=== PATIENT | female | born 1940 | race Caucasian/White ===

== ENCOUNTER 2020-11-25 08:06 | Inpatient (IN) ==
[2020-11-25] MEDS ORDERED: oxyCODONE/APAP 5/325MG TABLET PO ONE (08:15)
--- NOTE | 2020-11-25 08:23 | Emergency Department Note ---
HPI General Chief complaint: Fall Stated complaint: fall Time Seen by Provider: 11/25/20 08:15 Source: patient Mode of arrival: ambulatory Limitations: no limitations History of Present Illness HPI Narrative: Patient is an 80-year-old lady who arrives emergency department by ambulance accompanied by her daughter complaining of a fall. The patient says she got up to adjust a washcloth that was holding of the bathroom door open last night when she lost her balance and fell forward, striking her head on a countertop. She did not lose consciousness and was able to ambulate back to bed. This morning, she awoke and walked into another room to take Tylenol and ibuprofen. She then began having severe pain in her low back and lost consciousness briefly. She awoke on the floor with the Tylenol and ibuprofen still in her mouth. She then swallowed it but did later vomit. She continued having significant pain in her low back so she called 911 and was transported to the hospital. She finds that moving and sitting upright makes the back pain worse. Nothing seems to make it any better. She is also experiencing pain in her left shoulder that worsens with movement. She denies any other apparent injuries. Related Data Home Medications Medication Instructions Recorded Confirmed levothyroxine 125 mcg PO DAILY 10/16/14 11/25/20 aspirin 81 mg tablet,delayed 81 mg PO QDAY 05/25/19 11/25/20 release carbamazepine 200 mg 200 mg PO .COMPLEX 05/25/19 11/25/20 tablet,extended release,12 hr cholecalciferol (vitamin D3) 1,250 50,000 unit PO QWEEK 05/25/19 11/25/20 mcg (50,000 unit) capsule prednisolone acetate 1 % eye 1 drp OPHTHALMIC QID ml 05/25/19 11/25/20 drops,suspension rosuvastatin 10 mg tablet 10 mg PO HS tab 05/25/19 11/25/20 gabapentin 400 mg PO QHS 11/25/20 11/25/20 timolol maleate 1 drp OPHTHALMIC (EYE) BID 11/25/20 11/25/20 Previous Rx's Medication Instructions Recorded lisinopril 10 mg tablet 5 mg PO DAILY #60 tab 07/03/19 Allergies Allergy/AdvReac Type Severity Reaction Status Date / Time No Known Drug Allergies Allergy Unverified 10/16/14 09:47 Review of Systems ROS ROS Narrative: Narrative: All systems ED: reviewed and negative except as stated. Constitutional: Denies fever and chills Cardiovascular: Denies chest pain Respiratory: Denies shortness of breath and cough Gastrointestinal: Denies abdominal pain PFSH Narrative Patient History Narrative: Narrative: Medical/Surgical/Family History All Active Problems (Updated 11/26/20 @ 18:16 by Dragan Aguilera DO) Compression fracture of vertebral column (Acute) History of Papanicolaou smear of cervix (Chronic) History of bone density study (Chronic ~02/2009) History of mammogram (Chronic ~02/2009) Bipolar disorder (Chronic) Elevated random blood glucose level (Chronic) Hyperlipidemia (Chronic) Osteoporosis (Chronic) Encounter for screening for malignant neoplasm of colon (Chronic) Normal physical exam (Chronic) Hypothyroidism (Chronic) Vitamin D deficiency, unspecified (Chronic) Other screening mammogram (Chronic) Encounter for screening for malignant neoplasm of cervix (Chronic) Fatigue (Chronic) Hypertension (Chronic) Anxiety (Chronic) Dry mouth (Chronic) Arterial stenosis (Chronic) Fuchs' corneal dystrophy (Chronic) Impacted cerumen, right ear (Chronic) Urinary frequency (Chronic) Encounter for long-term current use of medication (Chronic) Medication monitoring encounter (Chronic) Skin lesion (Chronic) Dizziness (Chronic) Orthostatic dizziness (Chronic) Rib pain (Chronic) Hyponatremia (Chronic) Fall (Acute) Rib fracture (Acute) Medical History Anxiety Arterial stenosis Bipolar disorder Dizziness Dry mouth Elevated random blood glucose level Encounter for long-term current use of medication Encounter for screening for malignant neoplasm of cervix Encounter for screening for malignant neoplasm of colon Fatigue Fuchs' corneal dystrophy History of bone density study (~02/2009) History of mammogram (~02/2009) History of Papanicolaou smear of cervix 2008, 2012, 2014 Hyperlipidemia Hypertension Hyponatremia Hypothyroidism Impacted cerumen, right ear Medication monitoring encounter Normal physical exam Orthostatic dizziness Osteoporosis Other screening mammogram Rib pain Skin lesion Urinary frequency Vitamin D deficiency, unspecified Surgical History History of bilateral cataract extraction (~2012) History of colonoscopy (~12/2004) Repeat in 5 yrs. 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 Gen -patient is awake and alert and in no acute distress. The patient is well groomed. HEENT -head is atraumatic. There is no conjunctival pallor or scleral icterus. Mucous membranes are moist. CV -S1-S2 regular rate and rhythm. Peripheral pulses are palpable. There is no JVD. Resp -breathing is nonlabored. Lungs are clear to auscultation bilaterally. There is no cyanosis. GI - Abdomen is soft and nontender to palpation. There is no guarding or rebound tenderness. Derm -skin is warm and dry. There is no visible rash. MSK -there is no cervical or thoracic spinal tenderness to palpation. There is moderate tenderness to palpation throughout the upper and mid lumbar spine without palpable underlying deformity. Pelvis is stable. Right upper extremity and lower extremities are nontender to palpation. There is mild tenderness to palpation over the posterior left shoulder without any palpable bony deformity. Radial pulses palpable. Patient's elbow and wrist are nontender to palpation. Psych -patient has appropriate affect. The patient does not appear internally stimulated. Neuro -patient answers questions appropriately with fluent speech. Patient moves all present extremities equally. General Limitations: no limitations Course Vital Signs Vital signs: Vital Signs Temperature 97.6 F 11/25/20 08:07 Pulse Rate 66 11/25/20 08:07 Respiratory Rate 19 11/25/20 08:07 Blood Pressure 137/79 11/25/20 08:07 Pulse Oximetry (%) 91 11/25/20 08:07 Temperature 98.6 F 11/26/20 16:00 Pulse Rate 70 11/26/20 16:00 Respiratory Rate 14 11/26/20 16:00 Blood Pressure 138/80 11/26/20 16:00 Pulse Oximetry (%) 94 11/26/20 16:00 [facility] Narrative Medical decision making narrative: Patient presents with low back pain following a fall. CT reveals a stable vertebral compression fracture. She was given multiple doses of analgesics in the emergency department but was unable to sit up in bed or ambulate without severe pain. Given this I recommended to be admitted for pain control. The patient and her family are agreeable with this. I discussed her history examination diagnostic findings with Dr. Epperson who accepts admission to his service. Lab Data Lab results reviewed: Yes I reviewed the patient's lab results. Result diagrams: 11/26/20 06:08 11/26/20 06:07 Labs: Lab Results 11/25/20 11/25/20 Range/Units 13:13 13:13 WBC 11.1 H (4.5-11.0) K/mcL RBC 4.36 (3.59-5.38) M/mcL Hgb 12.9 (11.2-15.7) g/dL Hct 39.5 (34.1-44.9) % POC Hct 39 (36-48) % MCV 90.6 (80.0-100.0) fL MCH 29.6 (26.0-34.0) pg MCHC 32.7 (31.0-36.0) g/dL RDW 12.9 (11.5-14.5) % Plt Count 221 (140-440) K/mcL MPV 10.7 H (7.4-10.4) fL Neut % (Auto) 84.9 H (38.0-78.0) % Lymph % (Auto) 7.9 L (15.5-49.0) % [place] % (Auto) 6.7 (1.0-12.0) % Eos % (Auto) 0.2 (0.0-7.0) % Baso % (Auto) 0.3 (0.0-2.0) % Lymph # (Auto) 0.87 L (1.50-4.80) K/mcL [place] # (Auto) 0.74 (0.10-0.90) K/mcL Eos # (Auto) 0.02 (0.00-0.70) K/mcL Baso # (Auto) 0.03 (0.00-0.30) K/mcL Absolute Neutrophils 9.39 H (1.80-8.00) K/mcL POC Sodium 137 (133-145) mEq/L Sodium 133 (133-145) mmol/L POC Potassium 4.0 (3.3-5.1) mEql/L Potassium 4.1 (3.3-5.1) mmol/L POC Chloride 103 (96-108) mEq/L Chloride 100 (96-108) mmol/L Carbon Dioxide 21 L (22-30) mmol/L POC Total CO2 20 L (22-30) mmol/L Anion Gap 12.0 (8.0-16.0) POC BUN 8 (6-20) mg/dL BUN 9 (8-23) mg/dL Creatinine 0.4 L (0.6-1.1) mg/dL POC Creatinine 0.3 L (0.6-1.2) mg/dL GFR Calculation 97 Glucose 139 H (70-105) mg/dL POC Glucose 142 H (70-105) mg/dL Uric Acid 1.8 L (2.5-8.0) mg/dL Calcium 8.8 (8.6-10.4) mg/dL POC WB Ioniz Calcium 1.10 L (1.16-1.32) mmEq/L Phosphorus 2.5 (2.5-4.5) mg/dL Magnesium 2.1 (1.6-2.5) mg/dL Total Bilirubin 0.4 (0.1-1.0) mg/dL Direct Bilirubin < 0.2 (0-0.3) mg/dL GGT 31 (5-36) U/L AST 19 (<32) U/L ALT 18 (<40) U/L Alkaline Phosphatase 74 (39-117) U/L Lactate Dehydrogenase 255 H (135-225) U/L Total Protein 6.6 (5.9-8.4) gm/dL Albumin 4.0 (3.2-5.2) gm/dL Globulin 2.6 (2.2-3.7) gm/dL Albumin/Globulin Ratio 1.5 (1.0-2.3) Triglycerides 69 (<150) mg/dL ED POC Tests ED POC Tests: LORA - SARS Antigen Negative EKG Data EKG #1: EKG attestation: Yes I reviewed and interpreted this EKG. EKG results narrative: EKG performed at 8:22 AM: Sinus rhythm, rate 61. Normal P wave morphology. T waves are diffusely flattened. There are Q waves present in the inferior leads. No ST segment deviation. Normal TN QRS and QTc duration. There is no evidence of Brugada, Elkss-Rjnbjnisk-Pysba, HOCM or arrhythmogenic right ventricular dysplasia. No old EKG immediately available for comparison. EKG was interpreted by me. Discharge Plan Patient/Caregiver Discharge Instructions Pt seen by COMB SETTER/PA only: No Clinical Impression: Compression fracture of vertebral column Patient Disposition: Xfer As Inpt ([facility]) Condition: Good Discharge Date/Time: 11/25/20 15:12
--- NOTE | 2020-11-25 09:01 | Cat Scan Report ---
CLINICAL INFORMATION: Trauma-fall COMPARISON: None. TECHNIQUE: 2.5 mm helical slices were obtained in the skull base to vertex. Following reconstruction, axial reformatted images were reviewed at bone and parenchymal windows. The exam was performed using radiation dose optimization techniques including, but not limited to, automated exposure control, adjustment of the mA and/or kV according to patient size and use of iterative reconstruction technique. FINDINGS: The ventricles, sulci, fissures, and cisterns are symmetrically enlarged compatible with mild age-related atrophy. No extra-axial fluid collections are identified. Mild patchy chronic ischemic changes, in the deep cerebral white matter, are expected for age. There is no hemorrhage, mass effect, or edema. Bone windows show no osseous abnormality. IMPRESSION: Mild atrophy and chronic ischemic changes in the deep cerebral white matter-expected for age. No acute findings Moderate cerumen in the right external auditory meatus is noted. Consider removal Interpreted and Authenticated by: Bautista Napier 11/25/20
[2020-11-25] MEDS ORDERED: ONDANSETRON 4 MG/2 ML VIAL IV ONE (09:30)
[2020-11-25] MEDS ORDERED: ONDANSETRON 4 MG ODT TABLET SL ONE (09:37)
--- NOTE | 2020-11-25 09:45 | XRay Report ---
CLINICAL INFORMATION: fall COMPARISON: None. FINDINGS: There is no fracture or other osseous abnormality identified. Moderate acromioclavicular and mild glenohumeral degenerative change noted. IMPRESSION: Degeneration-no fracture. 15 mm nodular density left midlung is likely focal scarring. Suggest two-view upright chest x-ray. Interpreted and Authenticated by: Bautista Napire 11/25/20
--- NOTE | 2020-11-25 09:59 | Cat Scan Report ---
CLINICAL INFORMATION: Trauma-fall COMPARISON: None. TECHNIQUE: 0.625 mm helical slices were obtained from the mid T12 through mid S2 vertebral bodies. Following reconstruction, 2.5 mm coronal, sagittal, and axial reformations (angle to the disc spaces) were processed. Exam was reviewed at bone and soft tissue windows.The exam was performed using radiation dose optimization techniques including, but not limited to, automated exposure control, adjustment of the mA and/or kV according to patient size and use of iterative reconstruction technique. FINDINGS: The lumbar spine is normal in curvature and alignment. Mild acute compression fracture of the superior T12 endplate results in approximately 50% loss 2of vertebral height. A comminuted fracture is confined to the superior one half of vertebral body. There is no involvement of the pedicles or posterior elements. A posterior superior fragment is displaced only 6 mm into the anterior thecal sac. Diffuse osteoporosis noted. Soft tissues are normal. T11-T12, T12-L1, L1-2 and L2-3 disc levels are normal. At L3-4 and L4-5, mild broad disc protrusions and facet arthropathy results in minimal central canal and bilateral IV foraminal narrowing. No definite root impingement. At L5-S1 there is only only minimal annular bulge. IMPRESSION: 1. Mild acute T12 compression fracture with approximately 15% loss of vertebral height. The fracture is confined to the vertebral body without extension into the pedicles or posterior elements. It is almost certainly stable. Minimal displacement of a posterior superior fragment results in slight anterior thecal sac impingement 2. Mild multilevel degeneration Interpreted and Authenticated by: Bautista Napier 11/25/20
[2020-11-25] MEDS ORDERED: oxyCODONE HCL 5 MG TABLET PO ONE (10:41)
[2020-11-25] MEDS ORDERED: LIDOCAINE PATCH TOPICAL ONE (10:41)
[2020-11-25 13:26] LABS: POC Blood Urea Nitrogen 8 mg/dL (6-20); POC CO2 20 mmol/L (22-30); POC Chloride 103 mEq/L (96-108); POC Creatinine 0.3 mg/dL (0.6-1.2); POC Glucose, Random 142 mg/dL (70-105); POC Hematocrit 39 % (36-48); POC Sodium 137 mEq/L (133-145)
--- NOTE | 2020-11-25 13:47 | Internal Med History&Physical ---
HPI History of Present Illness Patient information: Note initiated : 11/25/20 at 1:42 pm Service Date, if different from initiated Date: [] Patient: Kim Hebert a 80 y/o F admitted on for Fall. Chief Complaint: [] History of present illness: Ms. Hebert is a 80 year old F Presents to the ED after a fall. Patient got up to move a washcloth that was holding the bathroom door open when she lost her balance and fell hitting her head on the counter she does not recall how she landed. She was able to crawl to the couch and get up on the couch and then developed left shoulder pain. The next morning she got up to go get some Tylenol and ibuprofen and swallowed the pills in the next thing she knows she is on the ground. That is when she noticed the severe back pain. She was unable to get up and called [address] brain no acute. Left shoulder x-ray shows moderate osteoarthritis. Lumbar film shows T12 acute compression fracture. EKG sinus rhythm. She has severe pain and is unable to ambulate and unable to care for self and will need to be admitted Review of Systems: Pertinent positives as above. Denies headache/fever/chills/nausea/vomiting/chest or abdominal pain/cough/dyspnea/diarrhea. Remaining 10 point review of system reviewed negative. PFSH PFSH All Active Problems History of Papanicolaou smear of cervix (Chronic) History of bone density study (Chronic ~02/2009) History of mammogram (Chronic ~02/2009) Bipolar disorder (Chronic) Elevated random blood glucose level (Chronic) Hyperlipidemia (Chronic) Osteoporosis (Chronic) Encounter for screening for malignant neoplasm of colon (Chronic) Normal physical exam (Chronic) Hypothyroidism (Chronic) Vitamin D deficiency, unspecified (Chronic) Other screening mammogram (Chronic) Encounter for screening for malignant neoplasm of cervix (Chronic) Fatigue (Chronic) Hypertension (Chronic) Anxiety (Chronic) Dry mouth (Chronic) Arterial stenosis (Chronic) Fuchs' corneal dystrophy (Chronic) Impacted cerumen, right ear (Chronic) Urinary frequency (Chronic) Encounter for long-term current use of medication (Chronic) Medication monitoring encounter (Chronic) Skin lesion (Chronic) Dizziness (Chronic) Orthostatic dizziness (Chronic) Rib pain (Chronic) Hyponatremia (Chronic) Fall (Acute) Rib fracture (Acute) Medical History Anxiety Arterial stenosis Bipolar disorder Dizziness Dry mouth Elevated random blood glucose level Encounter for long-term current use of medication Encounter for screening for malignant neoplasm of cervix Encounter for screening for malignant neoplasm of colon Fatigue Fuchs' corneal dystrophy History of bone density study (~02/2009) History of mammogram (~02/2009) History of Papanicolaou smear of cervix 2008, 2012, 2014 Hyperlipidemia Hypertension Hyponatremia Hypothyroidism Impacted cerumen, right ear Medication monitoring encounter Normal physical exam Orthostatic dizziness Osteoporosis Other screening mammogram Rib pain Skin lesion Urinary frequency Vitamin D deficiency, unspecified Surgical History History of bilateral cataract extraction (~2012) History of colonoscopy (~12/2004) Repeat in 5 yrs. 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 Family History Sister Breast cancer Social History (Updated 05/25/19 @ 11:29 by Sherin Kahn) marital status: substance use type: does not use MEDS/ALLERGIES Home Medications and Allergies Home Medications Medication Instructions Recorded Confirmed Type Aspirin Buffered 325 mg Tab 325 PO 10/16/14 10/16/14 History gabapentin 100 mg PO TID 10/16/14 10/16/14 History levothyroxine 125 mcg PO DAILY 10/16/14 05/25/19 History tramadol 50 mg PO Q4H PRN #20 tab 07/12/18 Rx aspirin 81 mg tablet,delayed 81 mg PO QDAY 05/25/19 05/25/19 History release carbamazepine 200 mg 200 mg PO .COMPLEX 05/25/19 05/25/19 History tablet,extended release,12 hr cholecalciferol (vitamin D3) 1,250 50,000 unit PO QWEEK 05/25/19 05/25/19 History mcg (50,000 unit) capsule latanoprost 0.005 % eye drops 1 drp OPHTHALMIC QDAY 05/25/19 05/25/19 History prednisolone acetate 1 % eye 1 drp OPHTHALMIC DAILY ml 05/25/19 05/25/19 History drops,suspension rosuvastatin 10 mg tablet 10 mg PO .QOD tab 05/25/19 05/25/19 History lisinopril 10 mg tablet 5 mg PO DAILY #60 tab 07/03/19 Rx Allergies Allergy/AdvReac Type Severity Reaction Status Date / Time No Known Drug Allergies Allergy Unverified 10/16/14 09:47 EXAM Constitutional Vitals: Temp Pulse Resp BP Pulse Ox 97.6 F 76 19 154/82 93 11/25/20 08:07 11/25/20 13:16 11/25/20 08:07 11/25/20 13:16 11/25/20 13:16 Exam: General: Alert, Awake, No acute Distress Eyes/N/T: EOMI, PERRL, MM Head/Neck: neck supple, normocephalic atraumatic CV: RRR, No murmurs, normal s1/s2 Pulm: Clear b/l, no wheezing/rhonchi/rales Abd: soft, nontender, +BS x4 Ext: no clubbing/cyanosis, trace b/l LE edema Neuro: Alert, no focal deficits, moves all extremities, CN 2-12 grossly intact, symmetrical strength b/l upper/lower, sensations intact b/l upper/lower Skin: warm/dry DATA Data Completed and Pending Labs: Labs from last 24 hours 11/25/20 11/25/20 13:13 13:13 WBC Pending RBC Pending Hgb Pending Hct Pending POC Hct 39 MCV Pending MCH Pending MCHC Pending RDW Pending Plt Count Pending MPV Pending Neut % (Auto) Pending POC Sodium 137 Sodium Pending POC Potassium 4.0 Potassium Pending POC Chloride 103 Chloride Pending Carbon Dioxide Pending POC Total CO2 20 L Anion Gap Pending POC BUN 8 BUN Pending Creatinine Pending POC Creatinine 0.3 L GFR Calculation Pending Glucose Pending POC Glucose 142 H Uric Acid Pending Calcium Pending POC WB Ioniz Calcium 1.10 L Phosphorus Pending Magnesium Pending Total Bilirubin Pending Direct Bilirubin Pending GGT Pending AST Pending ALT Pending Alkaline Phosphatase Pending Lactate Dehydrogenase Pending Total Protein Pending Albumin Pending Globulin Pending Albumin/Globulin Ratio Pending Triglycerides Pending A/P Narrative A/P Narrative: A: *T12 acute compression fracture from Fall: *Left shoulder pain: 2/2 fall, no Fx but moderate OA *Generalized weakness/deconditioning/acute debility: *Bipolar d/o: *Hypothyroidism: TSH wnl *HTN/HLD: *PVD w/LE stent in past by Dr. Zamarripa: on asa 325 * P: -pain control -pt/ot, consider TLSO brace -cont home ACEI, ASA/statin, psych med -2 view cxr to f/u ?nodule on shoulder film -clarify home meds -CM for placement -ppx: Lovenox DNR Time Spent With Patient Time: Total time spent is greater than 50% in coordination of care (as documented) at patient's floor/unit and/or counseling patient:
[2020-11-25 14:11] LABS: Basophils # (Auto) 0.03 K/mcL (0.00-0.30); Basophils % (Auto) 0.3 % (0.0-2.0); Eosinophils # (Auto) 0.02 K/mcL (0.00-0.70); Eosinophils % (Auto) 0.2 % (0.0-7.0); Hematocrit 39.5 % (34.1-44.9); Hemoglobin 12.9 g/dL (11.2-15.7); Lymphocytes # (Auto) 0.87 K/mcL (1.50-4.80); Lymphocytes % (Auto) 7.9 % (15.5-49.0); Mean Cell Volume 90.6 fL (80.0-100.0); Mean Corpuscular HGB Conc 32.7 g/dL (31.0-36.0); Mean Platelet Volume 10.7 fL (7.4-10.4); Monocytes # (Auto) 0.74 K/mcL (0.10-0.90); Monocytes % (Auto) 6.7 % (1.0-12.0); Neutrophils % (Auto) 84.9 % (38.0-78.0); Platelet Count 221 K/mcL (140-440); RBC 4.36 M/mcL (3.59-5.38); Red Cell Distribution Width 12.9 % (11.5-14.5); WBC 11.1 K/mcL (4.5-11.0)
[2020-11-25 14:33] LABS: ALT/SGPT 18 U/L (<40); AST/SGOT 19 U/L (<32); Albumin/Globulin Ratio 1.5 (1.0-2.3); Alkaline Phosphatase 74 U/L (39-117); Bilirubin,Direct < 0.2 mg/dL (0-0.3); Bilirubin,Total 0.4 mg/dL (0.1-1.0); Blood Urea Nitrogen 9 mg/dL (8-23); Calcium 8.8 mg/dL (8.6-10.4); Carbon Dioxide 21 mmol/L (22-30); Chloride 100 mmol/L (96-108); Globulin 2.6 gm/dL (2.2-3.7); Glomerular Filtration Rate 97; Glucose 139 mg/dL (70-105); Lactate Dehydrogenase 255 U/L (135-225); Phosphorous 2.5 mg/dL (2.5-4.5); Triglycerides 69 mg/dL (<150); Uric Acid 1.8 mg/dL (2.5-8.0)
[2020-11-25] MEDS ORDERED: SENNOSIDES 1 TABLET PO PRN (15:24)
[2020-11-25] MEDS ORDERED: ACETAMINOPHEN 325 MG TABLET PO PRN (15:24)
[2020-11-25] MEDS ORDERED: 0.9 % SODIUM CHLORIDE 1,000 ML IV SCH (15:24)
[2020-11-25] MEDS ORDERED: POTASSIUM CHLORIDE 20 MEQ TABLET PO PRN ×2 (15:24)
[2020-11-25] MEDS ORDERED: POTASSIUM CHLORIDE 40 MEQ in DEXTROSE 5% IN WATER 500 ML IV PRN (15:24)
[2020-11-25] MEDS ORDERED: IPRATROPIUM/ALBUTEROL 3 ML AMPUL.NEB NEB PRN (15:24)
[2020-11-25] MEDS ORDERED: POLYETHYLENE GLYCOL 3350 17 GM PACKET PO PRN (15:24)
[2020-11-25] MEDS ORDERED: MAGNESIUM SULFATE 2 GM/50 ML BAG IV PRN (15:24)
[2020-11-25] MEDS ORDERED: morphine 2 MG/ML VIAL IV PRN (16:27)
[2020-11-25] MEDS ORDERED: PROMETHAZINE 25 MG/ML VIAL IV PRN (16:28)
[2020-11-25] MEDS: ONDANSETRON 4 MG/2 ML VIAL IV PRN (16:50)
[2020-11-25] MEDS: 0.9 % SODIUM CHLORIDE 10 ML SYRINGE IV SCH ×2 (19:18→20:04)
[2020-11-25] MEDS: METOCLOPRAMIDE 10 MG/2 ML VIAL IV PRN (19:35)
[2020-11-25] MEDS: hydrALAZINE 20 MG/ML VIAL IV PRN (19:41)
[2020-11-25] MEDS: GABAPENTIN 400 MG CAPSULE PO SCH (20:03)
[2020-11-25] MEDS: ATORVASTATIN 20 MG TABLET PO SCH (20:03)
[2020-11-25] MEDS: DOCUSATE SODIUM 100 MG CAPSULE PO SCH (20:03)
[2020-11-25] MEDS: TIMOLOL 0.5% OPHTH DROPS BOTTLE 5ML OU SCH (20:04)
[2020-11-25] MEDS: carBAMazepine 200 MG TAB.SR.12H PO SCH (20:04)
[2020-11-26 07:27] LABS: Basophils # (Auto) 0.05 K/mcL (0.00-0.30); Basophils % (Auto) 0.5 % (0.0-2.0); Eosinophils # (Auto) 0.15 K/mcL (0.00-0.70); Eosinophils % (Auto) 1.5 % (0.0-7.0); Hematocrit 37.4 % (34.1-44.9); Hemoglobin 11.9 g/dL (11.2-15.7); Lymphocytes # (Auto) 1.39 K/mcL (1.50-4.80); Lymphocytes % (Auto) 13.5 % (15.5-49.0); Mean Cell Volume 93.3 fL (80.0-100.0); Mean Corpuscular HGB Conc 31.8 g/dL (31.0-36.0); Mean Platelet Volume 10.8 fL (7.4-10.4); Monocytes # (Auto) 1.07 K/mcL (0.10-0.90); Monocytes % (Auto) 10.4 % (1.0-12.0); Neutrophils % (Auto) 74.1 % (38.0-78.0); Platelet Count 189 K/mcL (140-440); RBC 4.01 M/mcL (3.59-5.38); Red Cell Distribution Width 13.2 % (11.5-14.5); WBC 10.3 K/mcL (4.5-11.0)
[2020-11-26 08:26] LABS: Blood Urea Nitrogen 7 mg/dL (8-23); Calcium 8.4 mg/dL (8.6-10.4); Carbon Dioxide 21 mmol/L (22-30); Chloride 101 mmol/L (96-108); Glomerular Filtration Rate 97; Glucose 101 mg/dL (70-105)
[2020-11-26] MEDS ORDERED: KETOROLAC 15 MG/ML VIAL IV ONE (08:33)
--- NOTE | 2020-11-26 08:35 | Internal Med Progress Note ---
SUBJECTIVE Subjective Patient information: Note initiated : 11/26/20 at 8:29 am Service Date, if different from initiated Date: [] Patient: Kim Hebert a 80 y/o F admitted on 11/25/20 for Fall. Chief Complaint: [] Interval history: History of present illness: Ms. Hebert is a 80 year old F Presents to the ED after a fall. Patient got up to move a washcloth that was holding the bathroom door open when she lost her balance and fell hitting her head on the counter she does not recall how she landed. She was able to crawl to the couch and get up on the couch and then developed left shoulder pain. The next morning she got up to go get some Tylenol and ibuprofen and swallowed the pills in the next thing she knows she is on the ground. That is when she noticed the severe back pain. She was unable to get up and called [address] brain no acute. Left shoulder x-ray shows moderate osteoarthritis. Lumbar film shows T12 acute compression fracture. EKG sinus rhythm. She has severe pain and is unable to ambulate and unable to care for self and will need to be admitted 11/26 Feeling better while resting but does have increased pain with movement. Added Toradol as needed and Robaxin. We will schedule Tylenol for now. Use narcotics for breakthrough. MRI lumbar pending per Dr. Ellison request. Review of Systems: denies headache/fever/chills/nausea/vomiting/chest or abdominal pain/cough/dyspnea/diarrhea. Otherwise see above. Constitutional Vitals: Vital Signs Temp Pulse Resp BP Pulse Ox 98.4 F 74 14 128/67 92 11/26/20 07:33 11/26/20 07:33 11/26/20 07:33 11/26/20 07:33 11/26/20 07:33 Period Temp Pulse Resp BP Sys/Arana Pulse Ox Last 24 Hr 98.0 F-98.8 F 62-85 14-20 108-190/58-96 89-94 Intake and Output 11/25/20 11/26/20 11/26/20 21:59 05:59 13:59 Intake Total 1200 Output Total 153 1 Balance -153 1200 -1 Weight 67.812 kg Intake & Output: Intake & Output 11/25/20 11/26/20 11/26/20 21:59 05:59 13:59 Intake Total 1200 Output Total 153 1 Balance -153 1200 -1 Weight 67.812 kg Intake: IV 1000 Sodium Chloride 0.9% 1,000 ml @ 1000 100 mls/hr IV .Q10H [facility] Rx#: [id number] Oral 200 Output: # of times incontinent of urine 3 1 Emesis 150 Exam: General: Alert, Awake, No acute Distress Eyes/N/T: EOMI, Head/Neck: neck supple, CV: RRR, No murmurs, Pulm: Clear b/l, no wheezing/rhonchi/rales Abd: soft, nontender, +BS x4 Ext: no clubbing/cyanosis, trace b/l LE edema Neuro: Alert, no focal deficits, moves all extremities, Skin: warm/dry OBJ DATA Labs CBC & Chem 7: 11/26/20 06:08 11/26/20 06:07 Labs: Abnormal Lab Results 11/26/20 11/26/20 11/25/20 06:08 06:07 13:13 WBC 11.1 H MPV 10.8 H 10.7 H Neut % (Auto) 84.9 H Lymph % (Auto) 13.5 L 7.9 L Lymph # (Auto) 1.39 L 0.87 L [place] # (Auto) 1.07 H Absolute Neutrophils 9.39 H Carbon Dioxide 21 L POC Total CO2 BUN 7 L Creatinine 0.4 L POC Creatinine Glucose POC Glucose Uric Acid Calcium 8.4 L POC WB Ioniz Calcium Lactate Dehydrogenase 11/25/20 13:13 WBC MPV Neut % (Auto) Lymph % (Auto) Lymph # (Auto) [place] # (Auto) Absolute Neutrophils Carbon Dioxide 21 L POC Total CO2 20 L BUN Creatinine 0.4 L POC Creatinine 0.3 L Glucose 139 H POC Glucose 142 H Uric Acid 1.8 L Calcium POC WB Ioniz Calcium 1.10 L Lactate Dehydrogenase 255 H Meds: Medications Acetaminophen (Acetaminophen 325 Mg Tablet) 650 mg PO Q6HP PRN PRN Reason: PAIN/FEVER > 101 Last Admin: 11/26/20 03:04 Dose: 650 mg Documented by: Hydrocodone Bitart/Acetaminophen (Hydrocodone/Apap 5/325mg Tablet) 1 tab PO Q4HP PRN PRN Reason: PAIN LEVEL 3-6 Albuterol/Ipratropium (Ipratropium/Albuterol 3 Ml Ampul.Neb) 3 ml NEB Q4HP PRN PRN Reason: Shortness Of Breath Aspirin (Aspirin 81 Mg Tab.Chew) 81 mg PO DAILY [facility] Atorvastatin Calcium (Atorvastatin 20 Mg Tablet) 20 mg PO HS [facility] Last Admin: 11/25/20 20:03 Dose: 20 mg Documented by: Carbamazepine (Carbamazepine 200 Mg Tab.Sr.12h) 200 mg PO DAILY [facility] Carbamazepine (Carbamazepine 200 Mg Tab.Sr.12h) 400 mg PO HS [facility] Last Admin: 11/25/20 20:04 Dose: 400 mg Documented by: Docusate Sodium (Docusate Sodium 100 Mg Capsule) 100 mg PO BID [facility] Last Admin: 11/25/20 20:03 Dose: Not Given Documented by: Enoxaparin Sodium (Enoxaparin 40 Mg/0.4 Ml Syringe) 40 mg SQ DAILY [facility] Gabapentin (Gabapentin 400 Mg Capsule) 400 mg PO QHS [facility] Last Admin: 11/25/20 20:03 Dose: 400 mg Documented by: Hydralazine HCl (Hydralazine 20 Mg/Ml Vial) 0 mg IV Q2HP PRN PRN Reason: Hypertension Last Admin: 11/25/20 19:41 Dose: 20 mg Documented by: Potassium Chloride 40 meq/ (Dextrose) 520 mls @ 130 mls/hr IV UD PRN PRN Reason: Potassium < 3 Magnesium Sulfate (Magnesium Sulfate) 2 gm in 50 mls @ 50 mls/hr IV UD PRN PRN Reason: Magnesium </= 1.6 Levothyroxine Sodium (Levothyroxine 125 Mcg Tablet) 125 mcg PO QAMAC [facility] Lidocaine (Lidocaine Patch) 1 patch TOPICAL DAILY@1000 [facility] Lisinopril (Lisinopril 5 Mg Tablet) 5 mg PO DAILY [facility] Metoclopramide HCl (Metoclopramide 10 Mg/2 Ml Vial) 10 mg IV Q6HP PRN PRN Reason: Nausea And Vomiting Last Admin: 11/25/20 19:35 Dose: 10 mg Documented by: Morphine Sulfate (Morphine 2 Mg/Ml Vial) 1 - 3 mg IV Q3HP PRN; Protocol PRN Reason: Per Pain Protocol Last Admin: 11/25/20 16:51 Dose: 2 mg Documented by: Ondansetron HCl (Ondansetron 4 Mg/2 Ml Vial) 4 mg IV Q4HP PRN PRN Reason: Nausea And Vomiting Last Admin: 11/25/20 16:50 Dose: 4 mg Documented by: Polyethylene Glycol (Polyethylene Glycol 3350 17 Gm Packet) 17 gm PO DAILYP PRN PRN Reason: Constipation Potassium Chloride (Potassium Chloride 20 Meq Tablet) 40 meq PO UD PRN PRN Reason: Potssium is 3-3.5 Potassium Chloride (Potassium Chloride 20 Meq Tablet) 40 meq PO UD PRN PRN Reason: Potassium < 3 Prednisolone Acetate (Prednisolone 1% Ophth Drops 1ml Bottle) 1 gtt OS QID [facility] Promethazine HCl (Promethazine 25 Mg/Ml Vial) 12.5 mg IV Q6HP PRN PRN Reason: Nausea And Vomiting Senna (Sennosides 1 Tablet) 2 tab PO DAILYP PRN PRN Reason: Constipation Sodium Chloride (0.9 % Sodium Chloride 10 Ml Syringe) 10 ml IV Q8 [facility] Last Admin: 11/25/20 20:04 Dose: Not Given Documented by: Timolol Maleate (Timolol 0.5% Ophth Drops Bottle 5ml) 1 gtt OU BID [facility] Last Admin: 11/25/20 20:04 Dose: 1 gtt Documented by: A/P Narrative A/P Narrative: A: *T12 acute compression fracture from Fall: *Left shoulder pain: 2/2 fall, no Fx but moderate OA *Generalized weakness/deconditioning/acute debility: *Bipolar d/o: *Hypothyroidism: TSH wnl *HTN/HLD: *PVD w/LE stent in past by Dr. Zamarripa: on asa 325 * P: -pain control, scheduled tylenol for now, prn toradol, lidoderm, robaxin. -prn norco, may benefit from low-dose fentanyl patch, but will attempt non- narcotics first -pt/ot, consider LSO brace -cont home ACEI, ASA/statin, psych med -2 view cxr to f/u ?nodule on shoulder film -clarify home meds -CM for placement -ppx: Lovenox DNR Time Spent With Patient Time: Total time spent is greater than 50% in coordination of care (as d ocumented) at patient's floor/unit and/or counseling patient: QUALITY VTE Deep Vein Thrombosis/Pulmonary Embolism Present on Admission: No
[2020-11-26] MEDS: ACETAMINOPHEN 500 MG TABLET PO SCH ×3 (08:59→21:23)
[2020-11-26] MEDS: LISINOPRIL 5 MG TABLET PO SCH (09:20)
[2020-11-26] MEDS: LEVOTHYROXINE 125 MCG TABLET PO SCH (09:20)
[2020-11-26] MEDS: ENOXAPARIN 40 MG/0.4 ML SYRINGE SQ SCH (09:21)
[2020-11-26] MEDS: LIDOCAINE PATCH TOPICAL SCH (09:21)
[2020-11-26] MEDS: carBAMazepine 200 MG TAB.SR.12H PO SCH ×2 (09:22→21:24)
[2020-11-26] MEDS: prednisoLONE 1% OPHTH DROPS 1ML BOTTLE OS SCH ×4 (09:24→21:23)
[2020-11-26] MEDS: TIMOLOL 0.5% OPHTH DROPS BOTTLE 5ML OU SCH ×4 (09:24→21:34)
[2020-11-26] MEDS: ASPIRIN 81 MG TAB.CHEW PO SCH (12:45)
--- NOTE | 2020-11-26 14:58 | XRay Report ---
CLINICAL INFORMATION: f/u nodule found on shoulder film COMPARISON: Left shoulder films 11/25/2020 and chest x-rays 07/12/2018 FINDINGS: Heart size, mediastinum and pulmonary vessels are normal. There is minor scarring left midlung, but no nodule identified. No infiltrates or effusions. Moderate osteoporotic compression fractures in the mid and lower thoracic spine are chronic IMPRESSION: No evidence of left midlung nodule and focal scarring in this region. Moderate chronic osteoporotic compression fractures throughout the mid and lower thoracic spine Interpreted and Authenticated by: Bautista Napier 11/26/20
[2020-11-26] MEDS: DOCUSATE SODIUM 100 MG CAPSULE PO SCH ×2 (15:50→21:34)
[2020-11-26] MEDS: 0.9 % SODIUM CHLORIDE 10 ML SYRINGE IV SCH ×3 (15:51→21:35)
[2020-11-26] MEDS: KETOROLAC 15 MG/ML VIAL IV PRN ×2 (15:51→21:23)
[2020-11-26] MEDS: METHOCARBAMOL 750 MG TABLET PO PRN (21:23)
[2020-11-26] MEDS: GABAPENTIN 400 MG CAPSULE PO SCH (21:23)
[2020-11-26] MEDS: ATORVASTATIN 20 MG TABLET PO SCH (21:23)
[2020-11-26] MEDS: ONDANSETRON 4 MG/2 ML VIAL IV PRN (21:29)
[2020-11-27] MEDS: ACETAMINOPHEN 500 MG TABLET PO SCH ×4 (04:01→21:27)
[2020-11-27] MEDS: 0.9 % SODIUM CHLORIDE 10 ML SYRINGE IV SCH ×3 (04:02→22:10)
[2020-11-27] MEDS: KETOROLAC 15 MG/ML VIAL IV PRN ×2 (04:02→09:50)
[2020-11-27] MEDS: METHOCARBAMOL 750 MG TABLET PO PRN ×2 (04:23→21:27)
[2020-11-27] MEDS: LEVOTHYROXINE 125 MCG TABLET PO SCH (07:22)
[2020-11-27] MEDS: ENOXAPARIN 40 MG/0.4 ML SYRINGE SQ SCH (08:47)
[2020-11-27] MEDS: hydrALAZINE 20 MG/ML VIAL IV PRN (08:47)
[2020-11-27] MEDS: ASPIRIN 81 MG TAB.CHEW PO SCH (08:47)
[2020-11-27] MEDS: DOCUSATE SODIUM 100 MG CAPSULE PO SCH ×2 (08:47→20:41)
[2020-11-27] MEDS: LISINOPRIL 5 MG TABLET PO SCH (08:48)
[2020-11-27] MEDS: TIMOLOL 0.5% OPHTH DROPS BOTTLE 5ML OU SCH ×2 (09:00→20:41)
[2020-11-27] MEDS: prednisoLONE 1% OPHTH DROPS 1ML BOTTLE OS SCH ×4 (09:00→20:48)
[2020-11-27] MEDS: LIDOCAINE PATCH TOPICAL SCH ×2 (10:34→15:01)
[2020-11-27] MEDS: carBAMazepine 200 MG TAB.SR.12H PO SCH ×2 (11:02→20:42)
--- NOTE | 2020-11-27 12:35 | Internal Med Progress Note ---
SUBJECTIVE Subjective Patient information: Note initiated : 11/27/20 at 12:26 pm Service Date, if different from initiated Date: [] Patient: Kim Hebert a 80 y/o F admitted on 11/25/20 for Fall. Chief Complaint: [T12 compression fracture] History of present illness: Ms. Hebert is a 80 year old F Presents to the ED after a fall. Patient got up to move a washcloth that was holding the bathroom door open when she lost her balance and fell hitting her head on the counter she does not recall how she landed. She was able to crawl to the couch and get up on the couch and then developed left shoulder pain. The next morning she got up to go get some Tylenol and ibuprofen and swallowed the p ills in the next thing she knows she is on the ground. That is when she noticed the severe back pain. She was unable to get up and called [address] brain no acute. Left shoulder x-ray shows moderate osteoarthritis. Lumbar film shows T12 acute compression fracture. EKG sinus rhythm. She has severe pain and is unable to ambulate and unable to care for self and will need to be admitted 11/26 Feeling better while resting but does have increased pain with movement. Added Toradol as needed and Robaxin. We will schedule Tylenol for now. Use narcotics for breakthrough. MRI lumbar pending per Dr. Ellison request. 11/27: Pending MRI lumbar as per Dr. Ellison request. No overnight major events. c/o moderate sharp lower back pain. Not able to tolerate abdominal binder. c/o co nstipation. Denies shortness of breath. Constitutional Vitals: Vital Signs Temp Pulse Resp BP Pulse Ox 36.2 C 74 20 172/72 91 11/27/20 08:00 11/27/20 08:00 11/27/20 08:00 11/27/20 08:00 11/27/20 08:00 Period Temp Pulse Resp BP Sys/Arana Pulse Ox Last 24 Hr 36.2 C-37.0 C 69-74 14-24 136-172/72-84 91-94 Intake and Output 11/26/20 11/27/20 11/27/20 21:59 05:59 13:59 Intake Total 240 240 Output Total 2 451 100 Balance 238 -211 -100 Weight 68.492 kg Intake & Output: Intake & Output 11/26/20 11/27/20 11/27/20 21:59 05:59 13:59 Intake Total 240 240 Output Total 2 451 100 Balance 238 -211 -100 Weight 68.492 kg Intake: Oral 240 240 Output: Void Amount 450 # of times incontinent of urine 2 1 Emesis 100 Other: Meal Dinner Percent of Meal Consumed 75% Urine Appearance Clear Urine Color Light Alina General appearance: cooperative and no acute distress Head Head exam: Present atraumatic and normocephalic Eye Eye exam: Present EOMI and PERRL ENT ENT exam: Present mucous membranes moist, normal exam and normal external ear exam Neck Neck exam: Present normal inspection; Absent lymphadenopathy, tenderness and thyromegaly Respiratory Respiratory exam: Absent accessory muscle use, respiratory distress and wheezes Cardiovascular Cardiovascular exam: Present normal rate and rhythm; Absent JVD GI/Abdominal GI/Abdominal exam: Present normal bowel sounds and soft; Absent organomegaly and tenderness Extremities Exam Extremities exam: Present full ROM, normal capillary refill and normal inspection; Absent tenderness Back Exam Back exam: Present tenderness Neurological Exam Neurological exam: Present alert, CN II-XII intact and oriented X3; Absent motor sensory deficit Psychiatric Psychiatric exam: Present normal affect and normal mood; Absent anxious and depressed Skin Skin exam: Present dry and intact OBJ DATA Labs CBC & Chem 7: 11/26/20 06:08 11/26/20 06:07 Labs: Abnormal Lab Results 11/26/20 11/26/20 11/25/20 06:08 06:07 13:13 WBC 11.1 H MPV 10.8 H 10.7 H Neut % (Auto) 84.9 H Lymph % (Auto) 13.5 L 7.9 L Lymph # (Auto) 1.39 L 0.87 L [place] # (Auto) 1.07 H Absolute Neutrophils 9.39 H Carbon Dioxide 21 L POC Total CO2 BUN 7 L Creatinine 0.4 L POC Creatinine Glucose POC Glucose Uric Acid Calcium 8.4 L POC WB Ioniz Calcium Lactate Dehydrogenase 11/25/20 13:13 WBC MPV Neut % (Auto) Lymph % (Auto) Lymph # (Auto) [place] # (Auto) Absolute Neutrophils Carbon Dioxide 21 L POC Total CO2 20 L BUN Creatinine 0.4 L POC Creatinine 0.3 L Glucose 139 H POC Glucose 142 H Uric Acid 1.8 L Calcium POC WB Ioniz Calcium 1.10 L Lactate Dehydrogenase 255 H Meds: Medications Acetaminophen (Acetaminophen 500 Mg Tablet) 500 mg PO Q6H [facility] [place]; Protocol Last Admin: 11/27/20 08:58 Dose: 500 mg Documented by: Hydrocodone Bitart/Acetaminophen (Hydrocodone/Apap 5/325mg Tablet) 1 tab PO Q4HP PRN PRN Reason: PAIN LEVEL 3-6 Albuterol/Ipratropium (Ipratropium/Albuterol 3 Ml Ampul.Neb) 3 ml NEB Q4HP PRN PRN Reason: Shortness Of Breath Aspirin (Aspirin 81 Mg Tab.Chew) 81 mg PO DAILY [facility] [place] Last Admin: 11/27/20 08:47 Dose: 81 mg Documented by: Atorvastatin Calcium (Atorvastatin 20 Mg Tablet) 20 mg PO HS [facility] [place] Last Admin: 11/26/20 21:23 Dose: 20 mg Documented by: Carbamazepine (Carbamazepine 200 Mg Tab.Sr.12h) 200 mg PO DAILY [facility] [place] Last Admin: 11/27/20 11:02 Dose: 200 mg Documented by: Carbamazepine (Carbamazepine 200 Mg Tab.Sr.12h) 400 mg PO HS [facility] [place] Last Admin: 11/26/20 21:24 Dose: 400 mg Documented by: Docusate Sodium (Docusate Sodium 100 Mg Capsule) 100 mg PO BID [facility] [place] Last Admin: 11/27/20 08:47 Dose: 100 mg Documented by: Enoxaparin Sodium (Enoxaparin 40 Mg/0.4 Ml Syringe) 40 mg SQ DAILY [facility] [place] Last Admin: 11/27/20 08:47 Dose: 40 mg Documented by: Gabapentin (Gabapentin 400 Mg Capsule) 400 mg PO QHS [facility] [place] Last Admin: 11/26/20 21:23 Dose: 400 mg Documented by: Hydralazine HCl (Hydralazine 20 Mg/Ml Vial) 0 mg IV Q2HP PRN PRN Reason: Hypertension Last Admin: 11/27/20 08:47 Dose: 40 mg Documented by: Potassium Chloride 40 meq/ (Dextrose) 520 mls @ 130 mls/hr IV UD PRN PRN Reason: Potassium < 3 Magnesium Sulfate (Magnesium Sulfate) 2 gm in 50 mls @ 50 mls/hr IV UD PRN PRN Reason: Magnesium </= 1.6 Ketorolac Tromethamine (Ketorolac 15 Mg/Ml Vial) 15 mg IV Q6HP PRN PRN Reason: Per Pain Protocol Stop: 11/28/20 14:59 Last Admin: 11/27/20 09:50 Dose: 15 mg Documented by: Levothyroxine Sodium (Levothyroxine 125 Mcg Tablet) 125 mcg PO QAMAC [facility] [place] Last Admin: 11/27/20 07:22 Dose: 125 mcg Documented by: Lidocaine (Lidocaine Patch) 1 patch TOPICAL DAILY@1000 [facility] [place] Last Admin: 11/27/20 10:34 Dose: 1 patch Documented by: Lisinopril (Lisinopril 5 Mg Tablet) 5 mg PO DAILY [facility] [place] Last Admin: 11/27/20 08:48 Dose: 5 mg Documented by: Methocarbamol (Methocarbamol 750 Mg Tablet) 750 mg PO Q6HP PRN PRN Reason: Muscle Spasm Last Admin: 11/27/20 04:23 Dose: 750 mg Documented by: Metoclopramide HCl (Metoclopramide 10 Mg/2 Ml Vial) 10 mg IV Q6HP PRN PRN Reason: Nausea And Vomiting Last Admin: 11/25/20 19:35 Dose: 10 mg Documented by: Morphine Sulfate (Morphine 2 Mg/Ml Vial) 1 - 3 mg IV Q3HP PRN; Protocol PRN Reason: Per Pain Protocol Last Admin: 11/25/20 16:51 Dose: 2 mg Documented by: Ondansetron HCl (Ondansetron 4 Mg/2 Ml Vial) 4 mg IV Q4HP PRN PRN Reason: Nausea And Vomiting Last Admin: 11/26/20 21:29 Dose: 4 mg Documented by: Polyethylene Glycol (Polyethylene Glycol 3350 17 Gm Packet) 17 gm PO DAILYP PRN PRN Reason: Constipation Potassium Chloride (Potassium Chloride 20 Meq Tablet) 40 meq PO UD PRN PRN Reason: Potssium is 3-3.5 Potassium Chloride (Potassium Chloride 20 Meq Tablet) 40 meq PO UD PRN PRN Reason: Potassium < 3 Prednisolone Acetate (Prednisolone 1% Ophth Drops 1ml Bottle) 1 gtt OS QID [facility] [place] Last Admin: 11/27/20 09:00 Dose: 1 drop Documented by: Promethazine HCl (Promethazine 25 Mg/Ml Vial) 12.5 mg IV Q6HP PRN PRN Reason: Nausea And Vomiting Senna (Sennosides 1 Tablet) 2 tab PO DAILYP PRN PRN Reason: Constipation Sodium Chloride (0.9 % Sodium Chloride 10 Ml Syringe) 10 ml IV Q8 [facility] [place] Last Admin: 11/27/20 04:02 Dose: 10 ml Documented by: Timolol Maleate (Timolol 0.5% Ophth Drops Bottle 5ml) 1 gtt OU BID [facility] [place] Last Admin: 11/27/20 09:00 Dose: 1 gtt Documented by: A/P Assessment and plan (1) Compression fracture of vertebral column: Status: Acute (2) Hypertension: Status: Chronic (3) Hyperlipidemia: Status: Chronic (4) Fatigue: Status: Chronic Narrative A/P Narrative: Assessment and Plans: 1. T12 lumbar compression fracture: Stays in inpatient med surg Toradol IV PRN mild pain [place] PRN moderate pain Morphine IV PRN severe pain Robaxin PRN muscle spasm Lidoderm topical lower back 2. General deconditioning: PT OT evaluation for potential placement SNF vs home health PT OT 3. HTN: Lisinopril Continue pain control see #1 4. Mixed dyslipidemia: Continue statin therapy GI ppx: not currently indicated DVT ppx: Lovenox Code status: DNI DNR Prognosis: stable Disposition: inpatient med surg; PT OT evaluation for potential placement SNF vs home health PT OT Time Spent With Patient Time: Total time spent is greater than 50% in coordination of care (as documented) at patient's floor/unit and/or counseling patient: Total time spent with greater than 50% in coordination of care (as documented) at patient's floor/unit and/or counseling patient:: 15 - 24 minutes QUALITY VTE Deep Vein Thrombosis/Pulmonary Embolism Present on Admission: No
[2020-11-27] MEDS: HYDROcodone/APAP 5/325MG TABLET PO PRN ×2 (13:12→19:28)
[2020-11-27] MEDS: METOCLOPRAMIDE 10 MG/2 ML VIAL IV PRN (14:03)
--- NOTE | 2020-11-27 19:03 | Magnetic Resonance Report ---
CLINICAL INFORMATION: Acute T12 compression fracture. Evaluate COMPARISON: Lumbar spine CT 11/25/2020 TECHNIQUE: Sagittal T1 FLAIR, STIR, fast spin echo T2, axial T2 weighted images were acquired. FINDINGS: The lumbar spine is normal in curvature and alignment. Moderate acute T12 compression fracture with approximately 20% loss of vertebral height appreciated. Moderate edema is confined to the vertebral body and pedicle roots. The vertebral body has retrolisthesed approximately 5 mm to mildly impinges the anterior thecal sac. No other marrow signal abnormality. The conus medullaris ends at T12 homogeneous signal. Cauda equina roots are normal. No soft tissue abnormalities. T10-11, T11-T12, T12-L1, L1-2 and L2-3 disc levels are normal. At L3-4, mild broad disc protrusion left-sided asymmetry results in mild left IV foraminal narrowing. At L4-5, mild broad disc protrusion and facet arthropathy result in mild right IV foraminal narrowing. Slight impingement of the exiting right L4 nerve root. At L5-S1, the disc level is normal IMPRESSION: 1. Moderate T12 compression fracture with approximately 20% loss of vertebral height. No involvement of the posterior elements to suggest instability. Mild impingement of the anterior thecal sac. 2. Mild degeneration Interpreted and Authenticated by: Bautista Napier 11/27/20
[2020-11-27] MEDS: GABAPENTIN 400 MG CAPSULE PO SCH (20:41)
[2020-11-27] MEDS: ATORVASTATIN 20 MG TABLET PO SCH (20:41)
[2020-11-28] MEDS: KETOROLAC 15 MG/ML VIAL IV PRN (03:28)
[2020-11-28] MEDS: ACETAMINOPHEN 500 MG TABLET PO SCH ×2 (03:30→08:35)
[2020-11-28] MEDS: METHOCARBAMOL 750 MG TABLET PO PRN ×2 (03:31→09:35)
[2020-11-28] MEDS: 0.9 % SODIUM CHLORIDE 10 ML SYRINGE IV SCH (06:02)
[2020-11-28] MEDS: LEVOTHYROXINE 125 MCG TABLET PO SCH (07:43)
[2020-11-28] MEDS: TIMOLOL 0.5% OPHTH DROPS BOTTLE 5ML OU SCH (08:16)
[2020-11-28] MEDS: DOCUSATE SODIUM 100 MG CAPSULE PO SCH (08:16)
[2020-11-28] MEDS: HYDROcodone/APAP 5/325MG TABLET PO PRN ×2 (08:16→12:31)
[2020-11-28] MEDS: ASPIRIN 81 MG TAB.CHEW PO SCH (08:16)
[2020-11-28] MEDS: carBAMazepine 200 MG TAB.SR.12H PO SCH (08:16)
[2020-11-28] MEDS: LISINOPRIL 5 MG TABLET PO SCH (08:16)
[2020-11-28] MEDS: ENOXAPARIN 40 MG/0.4 ML SYRINGE SQ SCH (08:18)
[2020-11-28] MEDS: prednisoLONE 1% OPHTH DROPS 1ML BOTTLE OS SCH ×2 (08:35→12:35)
[2020-11-28] MEDS: LIDOCAINE PATCH TOPICAL SCH (10:39)
--- NOTE | 2020-11-28 10:58 | Discharge Summary ---
Discharge Provider Provider Patient information: Note initiated : 11/28/20 at 10:55 am Service Date, if different from initiated Date: [] Patient: Kim Hebert 80 y/o F admitted on 11/25/20 for Fall. Chief Complaint: [T12 lumbar spinal compression fracture] Date of admission: 11/25/20 15:05 Discharge date: 11/28/20 Primary care physician: Yoanna Ayoub Consults: 11/25/20 Consult to Physician [CONS] Stat Comment: Consulting Provider: Rogelio Epperson Reason For Exam: Physician to Consult 11/25/20 12:36 Consult to Physician [CONS] Stat Comment: Consulting Provider: Rogelio Epperson Reason For Exam: Physician to Consult Discharge Meds Discharge Medications Home Medications levothyroxine 125 mcg PO DAILY 10/16/14 [History Confirmed 11/25/20 Last Taken 10/15/14] aspirin 81 mg tablet,delayed release 81 mg PO QDAY 05/25/19 [History Confirmed 11/25/20 Last Taken Unknown] carbamazepine 200 mg tablet,extended release,12 hr 200 mg PO .COMPLEX 05/25/19 [History Confirmed 11/25/20 Last Taken Unknown] cholecalciferol (vitamin D3) 1,250 mcg (50,000 unit) capsule 50,000 unit PO QWEEK 05/25/19 [History Confirmed 11/25/20 Last Taken Unknown] prednisolone acetate 1 % eye drops,suspension 1 drp OPHTHALMIC QID ml 05/25/19 [History Confirmed 11/25/20 Last Taken Unknown] rosuvastatin 10 mg tablet 10 mg PO HS tab 05/25/19 [History Confirmed 11/25/20 Last Taken Unknown] lisinopril 10 mg tablet 5 mg PO DAILY #60 tab 07/03/19 [Rx Confirmed 11/25/20 Last Taken Unknown] gabapentin 400 mg PO QHS 11/25/20 [History Confirmed 11/25/20 Last Taken Unknown] timolol maleate 1 drp OPHTHALMIC (EYE) BID 11/25/20 [History Confirmed 11/25/20 Last Taken Unknown] HYDROcodone/APAP 5/325MG [[place]ry 5/325Mg] #1 ea 11/28/20 [Rx Last Taken Unknown] lidocaine 1 patch TOPICAL DAILY@1000 #10 ea 11/28/20 [Rx Last Taken Unknown] methocarbamol 750 mg PO Q6HP PRN #10 tab 11/28/20 [Rx Last Taken Unknown] COURSE Hospital Course Hospital course: Patient was admitted on November 22, 2020 for Covid pneumonia complicated with bacterial pneumonia superinfections. Patient was provided with ivermectin, heparin, and dexamethasone as part of the treatment for his Covid pneumonia. Supplemental oxygen was also being offered. Patient's sputum culture grew staph aureus as well as strep this collected. Patient was being offered various antibiotics including vancomycin, doxycycline, and eventually Bactrim DS. Patient was also in end-stage renal disease patient on hemodialysis and freight broker was consulted for hemodialysis needs. Patient received multiple rounds of hemodialysis during his hospitalizations. By November 28, 2020, patient has been tolerating room air, been afebrile for 24 hours or more, and reached clinical stability. As such, the decision was made to discharge patient home with prescriptions of the Bactrim DS to finished with 10-day course. Follow-up appointment with PCP made for the patient. All questions we re answered prior to patient being physically discharged. Discharge diagnosis: T12 lumbar compression fracture Time Spent with Patient Time attestation: Total time spent providing and/or coordinating discharge services: Patient was admitted on November 25, 2020 for T12 lumbar spinal compression fractures. Pain management with Toradol, [place], morphine, and Lidoderm provided. Physical and occupational therapist evaluated the patient and recommend SNF placement. Patient remained clinically stable and finally accepted by a SNF on November 28, 2020. All questions were answered prior to patient being physically discharged. EXAM Constitutional Vitals: Temp Pulse Resp BP Pulse Ox 36.8 C 76 20 158/75 94 11/28/20 07:29 11/28/20 07:29 11/28/20 07:47 11/28/20 07:29 11/28/20 07:29 General appearance: cooperative and no acute distress Head Head exam: Present atraumatic and normocephalic Eye Eye exam: Present EOMI and PERRL ENT ENT exam: Present mucous membranes moist, normal exam and normal external ear exam Neck Neck exam: Present normal inspection; Absent lymphadenopathy, tenderness and thyromegaly Respiratory Respiratory exam: Absent accessory muscle use, respiratory distress and wheezes Cardiovascular Cardiovascular exam: Present normal rate and rhythm; Absent JVD GI/Abdominal GI/Abdominal exam: Present normal bowel sounds and soft; Absent organomegaly and tenderness Extremities Exam Extremities exam: Present full ROM, normal capillary refill and normal insp ection; Absent tenderness Back Exam Back exam: Present tenderness Neurological Exam Neurological exam: Present alert, CN II-XII intact and oriented X3; Absent motor sensory deficit Psychiatric Psychiatric exam: Present normal affect and normal mood; Absent anxious and depressed Skin Skin exam: Present dry and intact Discharge Plan Patient/Caregiver Discharge Instructions Activity: as per physical therapy Diet: Regular Diet Prescriptions: New methocarbamol 750 mg Tablet 750 mg PO Q6HP PRN (Reason: Muscle Spasm) Qty: 10 RF: 0 lidocaine 5 % Adhesive Patch,Medicated 1 patch topical DAILY@1000 Qty: 10 RF: 0 (DME) Hydrocodone/Apap 5/325mg [B[place]ry 5/325mg] tablet See Rx Instructions .Route .MEDSUPPLY Qty: 1 RF: 0 Continued cholecalciferol (vitamin D3) 1,250 mcg (50,000 unit) capsule 50,000 unit PO QWEEK RF: 0 aspirin 81 mg tablet,delayed release (DR/EC) 81 mg PO QDAY RF: 0 prednisolone acetate 1 % drops,suspension 1 drp OPHTHALMIC QID RF: 0 lisinopril 10 mg tablet 5 mg PO DAILY Qty: 60 RF: 0 levothyroxine 125 MCG tablet 125 mcg PO DAILY RF: 0 carbamazepine 200 mg tablet extended release 12 hr 200 mg PO .COMPLEX RF: 0 rosuvastatin 10 mg tablet 10 mg PO HS RF: 0 gabapentin 400 mg Capsule 400 mg PO QHS RF: 0 timolol maleate 0.5 % drops 1 drp OPHTHALMIC (EYE) BID RF: 0 Follow Up Plan Follow up with: Yoanna Ayoub ARNP [Primary Care Provider] - Patient Disposition: Xfer SNF Prognosis: Good Rehab Potential: Good I certify that the patient requires SNF services: Yes Overall status at discharge: patient is progressing back to baseline Discharge Orders: Discharge Order (Routine); Ordered 11/28/20 Ordered By: Ba TROY VTE Deep Vein Thrombosis/Pulmonary Embolism Present on Admission: No
--- NOTE | 2020-12-08 07:49 | EKG ---
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
== END 2020-11-28 13:05 | DRG 552 ==
LOC: ED 08:06 → MEDSUR 15:05
PROVIDERS: ADMIT Internal Medicine; ATTEND Internal Medicine